=== PATIENT | female | born 1980 | race Caucasian/White ===

== ENCOUNTER 2023-03-05 05:55 | Inpatient (IN) | payer BC ==
[2023-03-03 10:04] LABS: BILIRUBIN,URINE NEGATIVE (NEGATIVE); BLOOD, URINE 2+ (NEGATIVE); CLARITY/URINE CLEAR (CLEAR); COLOR,URINE YELLOW (YELLOW); GLUCOSE,URINE NEGATIVE (NEGATIVE); KETONES,URINE NEGATIVE (NEGATIVE); LEUKOCYTE ESTERASE ,URINE NEGATIVE (NEGATIVE); NITRITE, URINE NEGATIVE (NEGATIVE); PROTEIN URINE NEGATIVE (NEGATIVE); UROBILINOGEN,URINE 0.2 (0.2-1.0)
[2023-03-03 10:27] LABS: PROTHROMBIN TIME 10.3 SECS (9.5-12.5)
[2023-03-03 10:32] LABS: ALBUMIN 3.9 g/dL (3.4-4.8); CALCIUM 8.5 mg/dL (8.4-11.0); CREATININE 0.62 mg/dL (0.55-1.30); POTASSIUM 3.5 mmol/L (3.5-5.1); TOTAL BILIRUBIN 0.7 mg/dL (0.0-1.0); TOTAL PROTEIN, SERUM 7.6 g/dL (6.4-8.3)
[2023-03-03 10:37] LABS: BACTERIA,URINE None Seen /HPF (None Seen); RBC,URINE 0-3 /HPF (0-3); WBC,URINE 0-3 /HPF (0-3)
[2023-03-03 10:43] LABS: BASOPHILS % (AUTO) 0.5 % (0.0-2.0); EOSINOPHILS % (AUTO) 0.7 % (0.0-4.0); HEMATOCRIT 43.9 % (36-48); HEMOGLOBIN 14.6 g/dL (12.0-16.0); LYMPHOCYTES % (AUTO) 30.6 % (20.5-51.5); MEAN CORPUSCULAR HEMOGLOBIN 31 pg (27-31); MEAN CORPUSCULAR HGB CONC 33 % (32-36); MEAN CORPUSCULAR VOLUME 92 fL (79.0-98.0); MONOCYTES # (AUTO) 0.3 K/uL (0.0-1.0); MONOCYTES % (AUTO) 4.3 % (1.7-9.3); NEUTROPHILS # (AUTO) 4.1 K/uL (1.8-7.7); NEUTROPHILS % (AUTO) 63.9 % (40.0-70.0); PLATELET COUNT (AUTO) 285 K/uL (130-430); RED BLOOD CELL COUNT(AUTO) 4.78 MIL/uL (4.2-6.2); RED CELL DISTRIBUTION WIDTH 13.6 % (9.0-15.0); WHITE BLOOD COUNT (AUTO) 6.4 K/uL (4.8-10.8)
[~2023-03-05] VITALS: Ht 157.5 cm; Wt 88.5 kg
[2023-03-05] MEDS ORDERED: CEFAZOLIN SOD 2 GM in D5W 50 ML IV ONE (07:00)
[2023-03-05] MEDS ORDERED: fentaNYL CITRATE/PF 100 MCG/2 ML AMP ONE (07:39)
[2023-03-05] MEDS ORDERED: MIDAZOLAM HCL 2 MG/2 ML VIAL (VERSED) ONE (07:40)
[2023-03-05] MEDS ORDERED: ACETAMINOPHEN I.V. 1000 MG 100 ML IV ONE (07:40)
[2023-03-05] MEDS ORDERED: MORPHINE SULFATE 10MG/10ML PF AMP ONE (07:40)
[2023-03-05] MEDS ORDERED: LIDOCAINE/EPI 1% 1:100000 20 ML VIAL ONE (07:43)
[2023-03-05] MEDS ORDERED: OXYTOCIN 10 UNIT/ML VIAL ONE (07:43)
[2023-03-05] MEDS ORDERED: BUPIVACAINE /DEX PF 0.75% SPINAL 2 ML AMP INJ ONE (07:43)
[2023-03-05] MEDS ORDERED: PHENYLEPHRINE HCL 10 MG/ML VIAL (NEOSYNEPHRINE) ONE (07:43)
[2023-03-05] MEDS ORDERED: DEXAMETHASONE SOD PHOSPHATE 4 MG/ML VIAL ONE (07:43)
[2023-03-05] MEDS ORDERED: SEVOFLURANE 15 MIN GAS INH ONE (07:43)
[2023-03-05] MEDS ORDERED: PROPOFOL 200MG/ 20ML VIAL (DIPRIVAN) IV ONE (07:43)
[2023-03-05] MEDS ORDERED: ONDANSETRON HCL 4 MG/2 ML VIAL ONE (07:43)
[2023-03-05] MEDS ORDERED: KETOROLAC TROMETHAMINE 30 MG VIAL ONE (07:43)
[2023-03-05] MEDS ORDERED: LR 1,000 ML IV.SOLN IV ONE (07:43)
[2023-03-05] MEDS ORDERED: NS IRRIG SOLN 1000 ML IR ONE (07:43)
[2023-03-05] MEDS ORDERED: LR 1,000 ML IV ONE (08:30)
[2023-03-05] MEDS ORDERED: HYDROmorphone 1 MG/ML INJ. CARTRIDGE IVP PRN (08:30)
[2023-03-05] MEDS ORDERED: DIPHENHYDRAMINE INJ 50 MG/ML VIAL IVP PRN (08:30)
[2023-03-05] MEDS ORDERED: ONDANSETRON HCL 4 MG/2 ML VIAL IVP PRN (08:30)
[2023-03-05] MEDS ORDERED: fentaNYL CITRATE/PF 100 MCG/2 ML AMP IVP PRN ×2 (08:30)
[2023-03-05] MEDS ORDERED: NALOXONE HCL 0.4 MG/ML AMP (NARCAN) IVP PRN ×3 (08:30→09:15)
[2023-03-05] MEDS ORDERED: OXYCODONE/ACETAMINOPHEN 5-325 TABLET PO PRN ×2 (09:15)
[2023-03-05] MEDS ORDERED: HYDROcodone/ACETAMIN 5-325 MG TAB (NORCO/ VICODIN) PO PRN (09:15)
[2023-03-05 12:15] VITALS: BP_SYST 124; PULSE 72; RESP 16; TEMP 97
[2023-03-05 12:18] VITALS: O2SAT 99
[2023-03-05] MEDS: ceFAZolin SODIUM 2 GM in D5W 100 ML IV SCH ×2 (12:58→21:20)
[2023-03-05] MEDS: LR 1,000 ML IV SCH ×2 (12:59→21:20)
[2023-03-05 19:30] VITALS: BP_SYST 104; PULSE 80; RESP 18; TEMP 97.4; O2SAT 97
[2023-03-05 20:05] VITALS: O2SAT 97
[2023-03-05] MEDS ORDERED: TEMAZEPAM 7.5 MG CAPSULE PO SCH (21:00)
[2023-03-05] MEDS: SIMETHICONE 80 MG TAB.CHEW PO SCH (21:21)
[2023-03-06] VITALS: BP_SYST 114; PULSE 83; RESP 18; TEMP 98.4; O2SAT 96
[2023-03-06 05:30] LABS: BASOPHILS % (AUTO) 0.1 % (0.0-2.0); HEMOGLOBIN 11.3 g/dL (12.0-16.0); LYMPHOCYTES # (AUTO) 1.9 K/uL (1.0-5.5); MEAN CORPUSCULAR HEMOGLOBIN 31 pg (27-31); MEAN CORPUSCULAR HGB CONC 33 % (32-36); MEAN CORPUSCULAR VOLUME 93 fL (79.0-98.0); MONOCYTES # (AUTO) 0.9 K/uL (0.0-1.0); NEUTROPHILS % (AUTO) 71.9 % (40.0-70.0); PLATELET COUNT (AUTO) 233 K/uL (130-430); RED BLOOD CELL COUNT(AUTO) 3.68 MIL/uL (4.2-6.2); RED CELL DISTRIBUTION WIDTH 13.8 % (9.0-15.0); WHITE BLOOD COUNT (AUTO) 9.8 K/uL (4.8-10.8)
[2023-03-06] MEDS ORDERED: BISACODYL 10 MG/SUPPOSITORY RC ONE (06:00)
[2023-03-06 08:00] VITALS: O2SAT 99
[2023-03-06] MEDS: SIMETHICONE 80 MG TAB.CHEW PO SCH ×2 (10:58→13:00)
[2023-03-06 11:16] VITALS: BP_SYST 120; PULSE 88; RESP 17; TEMP 98; O2SAT 98
[2023-03-06 16:25] VITALS: BP_SYST 115; PULSE 104; RESP 18; TEMP 98.6; O2SAT 98
[2023-03-06] MEDS ORDERED: NALOXONE HCL 0.4 MG/ML AMP (NARCAN) IVP PRN (18:15)
[2023-03-06 18:28] VITALS: BP_SYST 117; PULSE 88; RESP 16; TEMP 98; O2SAT 99
[2023-03-06] MEDS ORDERED: HYDROcodone/ACETAMIN 10-325 MG TAB PO ONE (18:30)
== END 2023-03-06 18:55 | disposition home or self-care (01) | DRG 743 ==
LOC: SMU 05:55
PROVIDERS: ADMIT Specialist; ATTEND Specialist
PROC: 0U590ZZ Destruction of Uterus, Open Approach (ICD-10-PCS; principal; 2023-03-05 07:30)
DX: D25.1 Intramural leiomyoma of uterus (principal); N85.2 Hypertrophy of uterus; N92.1 Excessive and frequent menstruation with irregular cycle; N94.12 Deep dyspareunia; N92.0 Excessive and frequent menstruation with regular cycle; N85.9 Noninflammatory disorder of uterus, unspecified; D25.2 Subserosal leiomyoma of uterus
CPT/HCPCS: 36415; 71046-TC; 80053; 81000; 81001; 81015; 84702; 85025; 85610-TC; 85730-TC; 87081; 88305; 93005; J0131; J0690; J1100; J1885; J2274; J2370; J2405; J2590; J2704; J3010; J3465; J3490; J7060; J7120